=== PATIENT | male | born 1945 | race Caucasian/White ===

== ENCOUNTER → 2023-06-23 16:59 | Outpatient (CLI) | payer BC, SELFPAY ==
--- NOTE | 2023-06-23 17:00 | DI.RAD.S_ITS ---
PROCEDURE: XR CHEST 2V INDICATIONS: Cough x 3 weeks TECHNIQUE: 2 views of the chest were acquired. COMPARISON: None. FINDINGS: Surgical changes and devices: Left chest wall pulse generator with dual-chamber electrode leads. Lungs and pleura: No dense consolidation or pleural effusion. Mild peribronchial thickening. Mediastinum: Tortuous aorta. Normal heart size. Bones and chest wall: Degenerative changes. IMPRESSION: No airspace consolidation or pleural effusion. Mild peribronchial thickening could represent edema versus atypical infection. Dictated by: César Adams M.D. on 06/24/2023 at 11:47 Approved by: César Adams M.D. on 06/24/2023 at 11:47
== END ==
PROVIDERS: Visit Provider Physician Assistant
DX: J40 Bronchitis, not specified as acute or chronic (principal)
CPT/HCPCS: 71046